=== PATIENT | female | born 1980 | race Caucasian/White ===

== ENCOUNTER 2023-08-03 14:28 | Emergency (ER) | payer OTHER, SELFPAY ==
[2023-08-03 14:30] VITALS: BP 215/133; PULSE 78; RESP 16; TEMP 36.8; O2SAT 98; BMI 28.1
[2023-08-03] MEDS: Ondansetron 4 MG/2 ML Vial IV (15:09)
[2023-08-03] MEDS: HYDROmorphone 1 MG/ML Syringe IV (15:09)
[2023-08-03] MEDS: 0.9% Normal Saline (1000mL) 1,000 ML 1000 ML IV (15:10)
--- NOTE | 2023-08-03 15:10 | CT_ITS ---
STUDY: CT ABDOMEN AND PELVIS WITHOUT CONTRAST REASON FOR EXAM: Female, 43 years old. Left flank pain. RADIATION DOSAGE (If Supplied By Facility): CTDIvol = ( 12.75 ) mGy, DLP = ( 615.53 ) mGycm TECHNIQUE: Transaxial images were obtained from the dome of the diaphragm to the symphysis pubis without oral contrast, and without intravenous contrast. Sagittal and coronal images were reconstructed. Individualized dose optimization techniques were used for this CT. COMPARISON: None. FINDINGS: The visualized lung bases are unremarkable. The visualized portions of the heart are within normal limits. There is decreased attenuation of the liver consistent with steatosis. There are surgical clips in the gallbladder fossa consistent with a prior cholecystectomy. Normal spleen. Normal pancreas. Normal bilateral adrenal glands. 1.3 cm cyst in the inferior medial aspect of the right kidney. 2 mm nonobstructive calculus in the posterior midpole calyx of the left kidney as well as in the lower pole. Normal visualized stomach. Normal small intestine. Normal colon. There are surgical clips in the region of the appendix consistent with a prior appendectomy. There is scattered atherosclerotic calcification of the abdominal aorta, without a demonstrated aneurysm. Normal inferior vena cava. Normal retroperitoneum. Normal urinary bladder. There is absence of the uterus consistent with a prior hysterectomy. Normal abdominal wall. Normal osseous structures. CT/Abdomen/Pelvis without Cont IMPRESSION: Tiny nonobstructive left intrarenal calculi. No evidence of ureteral obstruction at this time. Status post appendectomy, hysterectomy and cholecystectomy. Fatty infiltration of the liver Electronically Signed: Jose Goss MD at 15:44 EST ,
--- NOTE | 2023-08-03 15:11 | EX.ED.DYSGE1 ---
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 Patient states that she had a 3 mm stone yesterday on CT, however today the pain is significantly worse, she is having nausea and vomiting, she does have a urologist in [place]. Patient dates the pain is too great, and she is told that if her blood pressure gets too high that could affect her thoracic aneurysm. Patient states she has taken nasal Toradol with no relief. She is here for evaluation. [facility] <REBEKAH Magaña - Last Filed: 08/03/23 16:15> [facility] Medical History (Updated 08/03/23 @ 16:[address] Robert Bain MD) AAA (abdominal aortic aneurysm) Kidney stone Allergy/AdvReac Type Severity Reaction Status Date / Time hydromorphone [From Dilaudid] Allergy Intermediate Hives Verified 08/03/23 15:20 iodine Allergy HIVES Verified 08/03/23 14:33 Social History Smoking Status: Unknown if ever smoked ROS <REBEKAH Magaña - Last Filed: 08/03/23 16:15> ROS ED ROS Narrative Constitutional: Negative for fever, chills, weight loss, weakness Eyes: Negative for vision loss, vision change, double vision ENT: Negative for any sore throat, ear pain, congestion Cardiovascular: Negative for any chest pain, tightness, palpitations Respiratory: Negative for any cough, sputum production, hemoptysis, dyspnea, dyspnea on exertion, orthopnea Gastrointestinal: Negative for any diarrhea, constipation, blood in stool, blood in vomit. Positive for left-sided flank pain, left abdominal pain, nausea and vomiting : Negative for any urinary frequency, dysuria, retention, blood in urine Muscle skeletal: Negative for any myalgias, arthralgias, neck pain. Positive left-sided flank pain Neurological: Negative for any headache, syncope, paresthesias, dizziness Skin: Negative for any rashes, lumps, itching, abrasions, lacerations Psychiatric: Negative for any depression, anxiety, stress, suicidal ideation, homicidal ideation Hematologic: Negative for any easy bruising, excessive bruising, easy bleeding Allergies: Negative for any eczema, hives, rash EXAM <REBEKAH Magaña - Last Filed: 08/03/23 16:15> Physical Exam Narrative Exam Narrative: Vital signs reviewed. HEET: Head normocephalic atraumatic, TMs clear bilaterally. Posterior pharynx is clear, moist mucous membranes. Nares clear bilaterally. Neck: Supple with no lymphadenopathy or tenderness. No signs of meningismus. Cardiac: Regular rate and rhythm no murmurs gallops or rubs, equal peripheral pulses bilaterally. Respiratory: Lungs clear to auscultation bilaterally. No chest tenderness. Abdomen: Soft, nontender, nondistended. No abdominal bruit or pulsatile masses. No hepatosplenomegaly Extremities: No peripheral edema, no signs of gross trauma or deformity. Active full range of motion of all extremities. Neuro: Cranial nerves II through XII intact, no focal neurological deficits. Skin: Clean dry and intact with no rash, purpura, petechiae, vesicles or pustules. Backs/flank: Positive left-sided flank pain, no midline spinal tenderness, no deformity. Psych: Normal mood and affect. No SI, HI or acute psychosis. Const Vital Signs: 08/03/23 14:30 08/03/23 15:45 Temperature 98.3 F Temperature Source Oral Pulse Rate 78 Respiratory Rate 16 16 Blood Pressure 215/133 H 178/105 H Blood Pressure Mean 160 129 Pulse Ox 98 99 Oxygen Delivery Method Room Air Room Air Positive well nourished and well developed General Appearance ED: well developed <Dr. Robert Bain MD - Last Filed: 08/03/23 20:45> Physical Exam Const Vital Signs: 08/03/23 14:30 08/03/23 15:45 Temperature 98.3 F Temperature Source Oral Pulse Rate 78 Respiratory Rate 16 16 Blood Pressure 215/133 H 178/105 H Blood Pressure Mean 160 129 Pulse Ox 98 99 Oxygen Delivery Method Room Air Room Air MDM <REBEKAH Magaña - Last Filed: 08/03/23 16:15> MDM Lab Data Labs: Laboratory Results - last 24 hr 08/03/23 15:05 WBC 5.0 RBC 4.65 Hgb 13.3 Hct 39.6 MCV 85.2 MCH 28.6 MCHC 33.6 RDW Std Deviation 37.7 RDW Coeff of [place]oman 12.3 Plt Count 186 MPV 9.9 Immature Gran % (Auto) 0.200 Neut % (Auto) 48.4 Lymph % (Auto) 39.6 [place] % (Auto) 10.2 H Eos % (Auto) 0.8 Baso % (Auto) 0.8 Absolute Neuts (auto) 2.4 Absolute Lymphs (auto) 1.99 Nucleated RBC % 0 Sodium 137 Potassium 3.4 L Chloride 106 Carbon Dioxide 25.0 Anion Gap 6 BUN 13 Creatinine 0.70 Estim Creat Clear Calc 103.92 Est GFR (MDRD) Af Amer 116 Est GFR (MDRD) Non-Af 96 BUN/Creatinine Ratio 18.5 Glucose 146 H Calcium 9.2 Total Bilirubin 0.50 AST 28 ALT 50 Alkaline Phosphatase 101 Total Protein 7.9 Albumin 3.9 Globulin 4.0 Albumin/Globulin Ratio 1.0 Lipase 75 Urine Color Yellow Urine Clarity Sl. Cloudy Urine pH 6.5 Ur Specific [place] 1.015 Urine Protein 30 H Urine Glucose (UA) Normal Urine Ketones Negative Urine Occult Blood 250 H Urine Nitrite Negative Urine Bilirubin Negative Urine Urobilinogen Normal Ur Leukocyte Esterase 500 H Urine RBC 50-100 SEEN Urine WBC 0-5 SEEN Ur Squamous Epith Cells 0-5 SEEN Urine Bacteria RARE Urine Mucus 0 SEEN Radiography Diagnostic Testing: Clinical Impression(s) from Imaging Studies Abdomen/Pelvis CT 08/03/23 15:10 IMPRESSION: Tiny nonobstructive left intrarenal calculi. No evidence of ureteral obstruction at this time. Status post appendectomy, hysterectomy and cholecystectomy. Fatty infiltration of the liver Electronically Signed: Jose Goss MD at 15:44 EST , Treatment and Re-Evaluation :: Patient appears to be in mild distress secondary to left-sided flank pain. Presenting to the emergency department for left-sided flank pain, known kidney stone. Differential diagnosis includes obstructing uropathy, pyelonephritis, gastroenteritis, muscle strain. Patient will receive basic laboratory values including a urinalysis. CT scan of the abdomen pelvis without contrast will be ordered. Patient be given IV fluids, Zofran, Dilaudid. Patient was given Dilaudid and Zofran, patient started breaking out in a red hive-like rash. Patient was given Benadryl, no respiratory issues. When asked, patient states that she knows that she has a sensitivity to Dilaudid however she just usually gets Benadryl. Dilaudid will be now placed in the patient's allergy calm. Patient is in no distress, vital signs will be repeated, patient received a CT scan of the abdomen pelvis out contrast. Patient CT scan showed an intrarenal calculi, no evidence of ureteral obstruction. No evidence of any obstructing uropathy. At this time, I do believe the patient is stable for discharge. There was some question regarding the patient's visits, concern for some pain seeking behavior. At this time, patient stable for discharge, she would not be given any medications for home. She will follow-up closely outpatient. At this time, patient be diagnosed with left flank pain uncertain etiology. Patient stable for discharge. <Dr. Robert Bain MD - Last Filed: 08/03/23 20:45> [facility] Narrative Medical decision making narrative: I have personally performed a face to face assessment of the patient and have reviewed the ZOHRA Note. I performed a substantive portion of the visit including all aspects of the following. My lawrence findings include: History: Patient was at a meeting here with Cal murphy. The pain in her left flank was worsening. She reports a history of cystine stones. She has left flank radiating to the groin. No upper back or chest pain or dyspnea. Not syncopal. She states she has a known left-sided kidney stone. No fevers Exam: When I see the patient she does look very comfortable. I saw her after her CAT scan. The she had actually arrived in the ED before me. She looks comfortable. Abdomen is benign. Mild CVA tenderness. Medical Decision Making: Electrolytes are unremarkable other than minimal elevation of glucose that can be followed. Her urine shows some red cells but no white cells. CBC is normal. My independent interpretation of her CT shows stone in the left kidney but no hydroureter. Final reading is similar. I talked with the patient. I think she is safe to go home. I did have a discussion with the patient. She goes to hospitals all over the state. I did bring up [facility]. There were almost too many hospitals to count. This may be because of her job but it has the appearance of seeking narcotics. This has been mentioned another dictations from other facilities. She has meds at home. She has been given pain meds here to help her and she is feeling better. But I do not feel comfortable prescribing controlled substances to go. Lab Data Attestation: I reviewed the patient's lab results. Labs: Laboratory Results - last 24 hr 08/03/23 15:05 WBC 5.0 RBC 4.65 Hgb 13.3 Hct 39.6 MCV 85.2 MCH 28.6 MCHC 33.6 RDW Std Deviation 37.7 RDW Coeff of [place] 12.3 Plt Count 186 MPV 9.9 Immature Gran % (Auto) 0.200 Neut % (Auto) 48.4 Lymph % (Auto) 39.6 [place] % (Auto) 10.2 H Eos % (Auto) 0.8 Baso % (Auto) 0.8 Absolute Neuts (auto) 2.4 Absolute Lymphs (auto) 1.99 Nucleated RBC % 0 Sodium 137 Potassium 3.4 L Chloride 106 Carbon Dioxide 25.0 Anion Gap 6 BUN 13 Creatinine 0.70 Estim Creat Clear Calc 103.92 Est GFR (MDRD) Af Amer 116 Est GFR (MDRD) Non-Af 96 BUN/Creatinine Ratio 18.5 Glucose 146 H Calcium 9.2 Total Bilirubin 0.50 AST 28 ALT 50 Alkaline Phosphatase 101 Total Protein 7.9 Albumin 3.9 Globulin 4.0 Albumin/Globulin Ratio 1.0 Lipase 75 Urine Color Yellow Urine Clarity Sl. Cloudy Urine pH 6.5 Ur Specific [place] 1.015 Urine Protein 30 H Urine Glucose (UA) Normal Urine Ketones Negative Urine Occult Blood 250 H Urine Nitrite Negative Urine Bilirubin Negative Urine Urobilinogen Normal Ur Leukocyte Esterase 500 H Urine RBC 50-100 SEEN Urine WBC 0-5 SEEN Ur Squamous Epith Cells 0-5 SEEN Urine Bacteria RARE Urine Mucus 0 SEEN Radiography Diagnostic Testing: Clinical Impression(s) from Imaging Studies Abdomen/Pelvis CT 08/03/23 15:10 IMPRESSION: Tiny nonobstructive left intrarenal calculi. No evidence of ureteral obstruction at this time. Status post appendectomy, hysterectomy and cholecystectomy. Fatty infiltration of the liver Electronically Signed: Jose Goss MD at 15:44 EST , Discharge Plan Triage Chief Complaint: Flank Pain ED Midlevel Provider: Salvador Snyder ED Provider: Robert Bain Dx/Rx/DC Orders Clinical Impression: Left flank pain, History of kidney stones Instructions: ED Flank Pain, Uncertain Cause Primary Care Provider: Latoya Pete,Out of Referrals: [facility] Doctor,Out of [Primary Care Provider] - Activity Restrictions/Additional Instructions: Follow-up with your urologist back [facility] as soon as possible. Disposition Disposition: Home, Self Care Discharge Date/Time: 08/03/23 17:00
[2023-08-03] MEDS: DiphenhydrAMINE 50 MG/ML Syringe 25 MG IV (15:18)
[2023-08-03 15:19] LABS: Mucous, Urine 0 SEEN /hpf (<or=2+)
[2023-08-03 15:21] LABS: Absolute Lymphocyte Count 1.99 X10^3/uL (0.83-4.51); Absolute Neutrophil Count 2.4 X10^3/uL (2.0-7.7); Basophil# 0.04 X10^3/uL; Basophil% 0.8 % (0-1); Color, Urine Yellow (Yellow); Eosinophil# 0.04 X10^3/uL; Eosinophils% 0.8 % (0-5); Glucose, Dipstick Normal (Normal); Hematocrit 39.6 % (37-47); Hemoglobin 13.3 g/dL (12.0-15.0); Ketone-Dipstick Negative (Negative); Leukocyte Esterase-Dipstick 500 /ul (Negative); Lymphocyte # 1.99 X10^3/ul (0.83-4.51); Lymphocyte % 39.6 % (19-41); Mean Corp Hgb Conc 33.6 g/dL (32-36); Mean Corpuscular Hgb 28.6 pg (27.0-32.0); Mean Corpuscular Volume 85.2 fL (81-99); Mean Platelet Vol. 9.9 fl (6.2-12.0); Monocyte# 0.51 X10^3/uL; Monocyte% 10.2 % (0-10); NRBC Flagged by Analyzer 0 % (0-5); Neutrophil # 2.43 X10^3/uL (2.7-7.7); Neutrophil % 48.4 % (47-70); Nitrite-Dipstick Negative (Negative); Occult Blood-Urine 250 /ul (Negative); Platelet Count 186 K/mm3 (150-450); Protein-Dipstick 30 mg/dl (Negative); RBC Distribution Width CV 12.3 % (11.6-14.6); RBC Distribution Width SD 37.7 fl (35.1-43.9); Red Blood Count 4.65 M/mm3 (4.2-5.4); Specific Gravity, Urine 1.015 (1.002-1.030); Urine Bilirubin Dipstick Negative (Negative); Urine Clarity Sl. Cloudy (Clear); Urine Urobilinogen Normal (Normal); Urine pH 6.5 (5.0 - 8.0)
--- NOTE | 2023-08-03 15:29 | ED.RN ---
PT REQUESTED DILAUDID. AFTER PUSHING IT PT DEVELOPED HIVES AN ITCHING. THIS RN INTO ROOM. ASKED PT IF SHE IS ALLERGIC TO ZOFRAN. PT STATES NO IT IS THE DILAUDID, THEY CALL IT A SENSITIVITY THIS RN INFORMED PT THAT THAT IS AN ALLERGY. CHART UPDATED. DR ABBASI. MEDS ORDERED
[2023-08-03 15:38] LABS: AST(SGOT) 28 U/L (15-37); Alanine Aminotransfer ALT/SGPT 50 U/L (13-56); Albumin, Serum 3.9 g/dL (3.2-5.0); Alkaline Phosphatase 101 U/L (45-117); Anion Gap 6 (5-15); BUN 13 mg/dL (7-18); BUN/Creat Ratio 18.5 RATIO (10-20); Calcium,Total 9.2 mg/dL (8.5-10.1); Chloride 106 mmol/L (98-107); EST Glomerular Filtration Rate 96 mL/min (>60); Est Glom Filt Rate - Afr Amer 116 mL/min (>60); Estimated Creatinine Clearance 103.92 ml/min; Glucose 146 mg/dL (74-106); Lipase 75 U/L (13-75); Potassium 3.4 mmol/L (3.5-5.1); Protein, Total 7.9 g/dL (6.4-8.2); Sodium Level 137 mmol/L (136-145)
[2023-08-03 15:45] VITALS: BP 178/105; RESP 16; O2SAT 99
[2023-08-03 15:48] LABS: Red Blood Cells-Urine 50-100 SEEN /hpf (0-5); Squamous Epithelial Cells - UA 0-5 SEEN /hpf (5-10); White Blood Cells 0-5 SEEN /hpf (0-5)
[2023-08-03 15:49] LABS: Bacteria RARE /hpf (None Seen)
== END 2023-08-03 17:00 | disposition home or self-care (01) ==
PROVIDERS: Nurse Practitioner; Emergency Provider Emergency Medicine; Visit Provider Emergency Medicine
DX: R10.9 Unspecified abdominal pain (principal); Z87.442 Personal history of urinary calculi
CPT/HCPCS: 74176; 80053; 81001; 83690; 85025; 96374; 96375; 99284; J7030; A4216; J2405